=== PATIENT | female | born 1985 ===

== ENCOUNTER 2020-12-03 16:49 | Inpatient (IN) ==
[2020-12-03] MEDS ORDERED: Buffered Lidocaine 1% SYRIN 1 ml INTRADERM ONE ×2 (17:49→18:30)
[2020-12-03] MEDS ORDERED: Lactated Ringers 1000 ml BAG 1,000 ML IV ONE (18:30)
[2020-12-03 18:34] LABS: Urine Appearance Cloudy; Urine Bilirubin Negative (Negative); Urine Blood Negative (Negative); Urine Color Straw; Urine Glucose Negative (Negative); Urine Ketones Negative (Negative); Urine Nitrite Negative (Negative); Urine Protein Negative (Negative); Urine Specific Gravity 1.003 (1.010-1.030); Urine Urobilinogen Negative (Negative)
[2020-12-03 18:43] LABS: ABS Lymphocytes 2.4 10^3/ul (1.0-4.8); ABS Monocytes 0.5 10^3/ul (0-0.8); ABS Neutrophils 7.8 10^3/ul (1.5-7.7); Eosinophil % 0.4 %; Hematocrit 31 % (35-47); Hemoglobin 10.8 g/dL (12.0-16.0); Lymphocyte % 21.9 %; Mean Corpuscular HGB Conc 35 g/dL (31-36); Mean Corpuscular Hemoglobin 31 pg (27-31); Mean Corpuscular Volume 89 fL (80-97); Mean Platelet Volume 8.4 fL (7.4-10.4); Platelet Count 305 10^3/uL (150-450); Red Blood Count 3.46 10^6 /uL (3.70-4.87); Red Cell Distribution Width 13 % (10-15); White Blood Count 10.8 10^3/uL (3.5-10.8)
[2020-12-03 18:51] LABS: Albumin 3.4 g/dL (3.2-5.2); BUN/Creatinine Ratio 14.5 (8-20); EGFR African American 132.5 (>60); EGFR Non-African American 109.5 (>60); Globulin 3.3 g/dL (2-4); Potassium 3.8 mmol/L (3.5-5.0); Total Bilirubin 0.3 mg/dL (0.2-1.0); Total Protein 6.7 g/dL (6.4-8.9); Uric Acid 3.5 mg/dL (2.3-6.6)
[2020-12-03] MEDS ORDERED: Lactated Ringers 1000 ml BAG 1,000 ML IV SCH (19:00)
[2020-12-03 19:19] LABS: Urine Benzodiazepine Screen None Detected (None Detect); Urine Cannabinoids Screen None Detected (None Detect); Urine Opiates Screen None Detected (None Detect)
[2020-12-04] MEDS ORDERED: OBEPIDURAL 250 ML EPIDURAL ONE (04:23)
[2020-12-04] MEDS ORDERED: Lactated Ringers 1000 ml BAG 1,000 ML IV ONE (05:09)
[2020-12-04] MEDS ORDERED: Lactated Ringers 1000 ml BAG 500 ML IV PRN (05:09)
[2020-12-04] MEDS ORDERED: Phenylephrine 40 mcg/mL 10mL (400mcg) SYRINGE IV PUSH PRN (05:09)
[2020-12-04] MEDS ORDERED: Sodium Citrate/Citric Acid LIQ 15 ML UDC PO PRN (05:09)
[2020-12-04] MEDS ORDERED: EPHEDrine (Pressors) 50 MG/ML VIAL IV PUSH PRN (05:09)
[2020-12-04] MEDS ORDERED: Oxytocin in LR 0 UNITS/0 ML BAG IVPB ONE (05:20)
[2020-12-04] MEDS ORDERED: OBEPIDURAL 250 ML EPIDURAL SCH (06:00)
[2020-12-04] MEDS ORDERED: Lactated Ringers 1000 ml BAG 1,000 ML IV SCH ×2 (06:00→07:00)
[2020-12-04] MEDS ORDERED: Glycerin ADULT 2.4 gm SUPP PR PRN (06:03)
[2020-12-04] MEDS ORDERED: Dibucaine 1% OINT 28.35 GM TUBE PR PRN (06:03)
[2020-12-04] MEDS ORDERED: Witch Hazel PAD JAR TOPICAL PRN (06:03)
[2020-12-05 06:08] LABS: ABS Basophils 0.1 10^3/ul (0-0.2); ABS Eosinophils 0.1 10^3/ul (0-0.6); ABS Lymphocytes 2.8 10^3/ul (1.0-4.8); ABS Monocytes 0.8 10^3/ul (0-0.8); ABS Neutrophils 9.8 10^3/ul (1.5-7.7); Hematocrit 31 % (35-47); Hemoglobin 10.8 g/dL (12.0-16.0); Lymphocyte % 20.5 %; Mean Corpuscular HGB Conc 35 g/dL (31-36); Mean Corpuscular Hemoglobin 31 pg (27-31); Mean Corpuscular Volume 90 fL (80-97); Mean Platelet Volume 8.6 fL (7.4-10.4); Nucleated Red Blood Cells % 0.1; Platelet Count 276 10^3/uL (150-450); Red Blood Count 3.47 10^6 /uL (3.70-4.87); Red Cell Distribution Width 13 % (10-15); White Blood Count 13.7 10^3/uL (3.5-10.8)
[2020-12-05 07:54] VITALS: BP 119/76
== END 2020-12-05 11:35 | disposition home or self-care (01) | DRG 560 ==
LOC: MCHOBOUT 16:49 → MCHOB 18:23
PROVIDERS: ADMIT Midwife; ATTEND Midwife